=== PATIENT | male | born 1930 | race Caucasian/White ===

== ENCOUNTER 2016-12-16 09:33 | Observation (INO) | payer MEDICARE, OTHER ==
[~2016-12-16] VITALS: Ht 177.8 cm; Wt 102.3 kg
[2016-12-17] MEDS ORDERED: PRILOSEC DPS20 MG PO (12:27)
[2016-12-17] MEDS ORDERED: COUMADIN DPS3 MG PO (12:27)
[2016-12-17] MEDS ORDERED: ZESTRIL DPS2.5 MG PO (12:28)
[2016-12-17] MEDS ORDERED: PROZAC DPS20 MG PO (12:28)
[2016-12-17] MEDS ORDERED: ASPIRIN EC81 MG PO (12:28)
[2016-12-17] MEDS ORDERED: SYNTHROID DPS0.05 MG PO (12:28)
[2016-12-17] MEDS ORDERED: SLO NIACIN DPS500 MG PO (12:28)
[2016-12-17] MEDS ORDERED: CRESTOR10 MG PO (12:28)
[2016-12-17] MEDS ORDERED: MIRAPEX DPS0.25 MG PO (12:29)
[2016-12-17] MEDS ORDERED: XANAX DPS0.25 MG PO (12:29)
[2016-12-17] MEDS ORDERED: CELEBREX200 MG PO (12:29)
[2016-12-17] MEDS ORDERED: AZILECT1 MG PO (12:29)
[2016-12-17] MEDS ORDERED: SINEMET 25/1001 TAB PO (12:29)
--- NOTE | 2016-12-18 13:16 | ER ---
ADMIT: 12/16/2016 RM/LOC: 428 [facility] MR#: [id number] [address] [address] CARDJOANN RAMIREZ [address] [place] [address] Emergency Room Report SEX: M AGE: 86 : 1930 DATE: 12/16/2016 The patient is an 86-year-old male with a past medical history of coronary artery disease, status post 2 stents, DVT, PE, Parkinson disease, who was brought to the ER with chief complaint of mid anterior chest pain which started during the patient was resting. Pain started to gradually increase in severity and became [id number], and was sharp, was not reproducible with palpation and did not increase with deep inspiration. The patient received aspirin in the ambulance. The patient was brought to the ER, vitals are stable, the patient is afebrile and heart rate is normal. EKG did not show any ST or T changes or arrhythmia. Cardiac enzymes are negative. PHYSICAL EXAMINATION: HEAD AND NECK: Noncontributory. CHEST: Bilateral equal breath sounds, normal S1, S2 without any S3 or murmur or S4. ABDOMEN: Soft and nontender without any guarding or rebound. EXTREMITIES: Lower extremities have 2+ pitting edema, with no changes in diameter of the bilateral legs. The patient states after half an hour, by the time he got to the hospital, the pain was as substantially resolved, but still has some intermittent similar pain which starts from the right ear and right side of neck and goes down to the anterior chest. The patient states he is very similar to the pain that he had when he got heart attack and got the stent. Considering the fact that the patient got the first troponin during the first hour of the appearance of the pain and the high-risk history of the patient with multiple comorbidities, Internal Medicine was consulted for possible further followups and possible serial sets of enzymes and EKG per their discretion. Dr. Galeas was also contacted, Cardiology. The patient was advised to get admitted for further followups and treatments for chest pain, rule out acute coronary syndrome. Alton Wilson MD/ cristina JOB #: [id number] CC: Filiberto Galeas MD, Attending Physician Filiberto Galeas MD, Family Physician
--- NOTE | 2016-12-19 11:04 | HP ---
ADMIT: 12/16/2016 RM/LOC: 428 [facility] MR#: [id number] 2620 [facility] [address] [place] [id number] JOANN CARD [address] [place] [address] History and Physical SEX: M AGE: 86 : 1930 DATE OF SERVICE: CHIEF COMPLAINT: Right-sided jaw pain that radiated to his chest that started this morning. Patient states it is very severe pain and it felt very similar to his previous episode in 1998 when he had a heart attack. The patient says the pain started around 8:30. He also had some nausea and feels weak. He also has now started to have a headache and some neck pain, which is not uncommon for him. The pain that he had this morning started at the right jaw and radiated to the chest, felt like it was kind of pulsating there for a while and he states that this is most severe pain he has ever felt, was not sure if he was going to make it this morning. Again similar to when he had symptoms in the past, so he decided to come into the ER. The patient continues to have some pain come and go, but primarily is now just located in his right jaw and headache. So far, workup has been normal. He does have a low hemoglobin 12.6, platelets were normal at 168, white blood cells are normal. PT/INR was 33.4 and 3.10, the patient is on Coumadin. D-dimer was normal at 0.27. Negative for PE also very unlikely due the patient being on Coumadin with the INR 3. BMP was also relatively normal. He had an elevated glucose at 101 and elevated creatinine of 1.5. GFR was low at 42. Cardiac enzymes were negative. CK was 82, MB was 2.4. Troponin less than 0.015. EKG shows sinus rhythm with multiple PVCs, left axis deviation. 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 No acute ST elevations are appreciated. Chest x- ray was normal. PAST MEDICAL HISTORY: Significant for Parkinson disease, multivessel coronary artery disease status post stent, diabetes type 2, hypertension, hyperlipidemia, hypothyroidism, history of DVTs and pulmonary embolisms, history of colon polyps, history of headaches, and a history of nonsustained ventricular tachycardia. ALLERGIES: INCLUDE VALIUM. MEDICATIONS: Include: 1. Coumadin 3.5 mg daily. 2. Omeprazole 20 mg daily. 3. Crestor 10 at night. 4. Lisinopril 2.5 at bedtime. 5. Niacin 500 mg at bedtime. 6. Prozac 20 mg at bedtime. 7. Levothyroxine 50 mcg a day. 8. Baby aspirin daily. 9. Mirapex 0.25 mg 3 times a day. 10.Sinemet 25/100 three times a day. 11.Azilect 1 mg daily. 12.Celebrex 200 mg twice a day. 13.Alprazolam 0.25 mg as needed. PAST SURGICAL HISTORY: He had the stents and CABG. He also has a history of orthopedic surgeries, quadriceps tears as well as the shoulders. ADMIT: 12/16/2016 RM/LOC: 428 [facility] MR#: [id number] [address] [place] [id number] CARDJOANN RAMIREZ [facility] [place] [address] History and Physical SEX: M AGE: 86 : 1930 FAMILY HISTORY: Significant for coronary artery disease, hypertension, arthritis, migraines, and Alzheimer disease. REVIEW OF SYSTEMS: GENERAL: Complains of fatigue and headache. No fever. HEENT: No sore throat. No ear pain. No rhinorrhea. No sinus pain. He does have again a headache and his right jaw pain. HEART: No shortness of breath. No palpitations. He does have positive chest pain and right-sided jaw pain. LUNGS: No shortness of breath. No cough. No wheezing. ABDOMEN: He has had some mild diarrhea recently and does feel nauseated, does not have vomiting. Does not have palpitations. Does not have abdominal pain. EXTREMITIES: No swelling. The patient does have arthritis in multiple joints. NEURO: No seizures. No confusion and no weakness. PHYSICAL EXAMINATION: VITAL SIGNS: Temperature is 97.7, pulse of 69, respiratory rate 20, blood pressure 129/79 with a 99% SpO2 on room air. GENERAL: No acute distress. Alert and oriented x3. Appears in some mild pain but he is able to easily converse with me. HEENT: Normocephalic and atraumatic. Moist mucous membranes. Extraocular muscles are intact. Pupils equal, round, and reactive. No carotid bruits bilaterally. HEART: Regular rate and rhythm. No murmur. LUNGS: Clear to auscultation bilaterally. Normal effort. No wheezing or rhonchi. ABDOMEN: Soft. Positive bowel signs. Mild tenderness in the epigastric region. EXTREMITIES: He does have some trace edema in his feet bilaterally. SKIN: Shows some mild bruising that is consistent and anticoagulant use. NEURO: Cranial nerves II through XII are grossly intact. He has some mild masked facies and he does have a right hand resting tremor consistent with Parkinson disease. ASSESSMENT AND PLAN: This is an 86-year-old male, who presents with chest pain and right jaw pain: 1. Atypical chest pain. 2. History of coronary artery disease. ADMIT: 12/16/2016 RM/LOC: 428 [facility] MR#: [id number] [facility] [address] [address] JOANN CARD [facility] [place] [address] History and Physical SEX: M AGE: 86 : 1930 3. Hypertension. 4. Diabetes. 5. Hypothyroidism. 6. Hyperlipidemia. 7. Parkinson disease. 8. Headaches. Low suspicion for cardiogenic cause of patient's pain, but we will trend EKGs and cardiac enzymes due to the patient's risk factors and history. We will continue the home medications. Cardiology has already been consulted. We will trend the cardiac enzymes every 3 hours for total of 3 times with EKGs. Also we will get a CBC, BMP, and cardiac enzymes again in the morning. This patient was seen and discussed with Dr. Dominik Fernandez. Galina Bennett MD Resident / Dominik Fernandez MD / cristina JOB #: [id number] CC: Filiberto Galeas, Attending Physician Filiberto Galeas, Family Physician
--- NOTE | 2016-12-29 17:24 | CO ---
ADMIT: 12/16/2016 RM/LOC: 428 [facility] MR#: [id number] [address] [address] JOANN CARD [address] [place] [address] Consultation SEX: M AGE: 86 : 1930 DATE OF CONSULTATION: 12/16/2016 ATTENDING PHYSICIAN: Filiberto Galeas CONSULTING PHYSICIAN: John Galeas MD REASON FOR CONSULTATION: Chest pain. HISTORY OF PRESENT ILLNESS: Joann is an 86-year-old, who is well known to me. I see him on a routine basis for coronary artery and peripheral vascular disease. He had a stent to the mid LAD in 1998. He has a left dominant system. We did a heart catheterization in 2010, which showed mild in-stent narrowing but no significant lesions. He has had a proximal to distal popliteal bypass and has a history of DVT/PE, on chronic anticoagulation. More recently, he has been diagnosed with Parkinson's. He has a long history of sinus bradycardia and nonsustained ventricular tachycardia, so he has been off beta-chris. He said he was doing well until this morning. He said he was just up at the table and looking on his cell phone when he turned and he began to have discomfort up in his right neck and then it radiated down his chest into his left chest. He describes as sharp, but cramping sensation. It was rather severe. There were no significant associated symptoms. It persisted, so he came to the emergency room. His cardiac enzymes are negative. He is currently pain free and he is in good humor now. He does not appear acutely ill. His EKG does not show any acute changes. He does have isolated PVCs. ALLERGIES: HE HAS DIOVAN LISTED AN ALLERGY. MEDICATIONS: 1. Coumadin 3 mg one daily. 2. Omeprazole 20 daily. 3. Crestor 10 at bedtime. 4. Lisinopril 2.5 at bedtime. 5. Niacin 500 at bedtime. 6. Prozac 20 at bedtime. 7. Levothyroxine 50 mcg daily. 8. Aspirin 81 daily. 9. Mirapex 0.5 three daily. 10.Sinemet 25/100 three daily. 11.Azilect 1 mg daily. 12.Celebrex 200 daily. 13.Alprazolam 0.25 as needed. ILLNESSES: 1. Hypothyroidism. 2. Coronary artery disease. 3. Peripheral vascular disease. 4. History of bradycardia and nonsustained ventricular tachycardia. ADMIT: 12/16/2016 RM/LOC: 428 [facility] MR#: [id number] [address] [address] JOANN CARD [address] [place] [address] Consultation SEX: M AGE: 86 : 1930 5. Previous DVT/PE, on chronic anticoagulation. 6. Hyperlipidemia. 7. More recently a diagnosis of Parkinson's. PAST SURGICAL HISTORY: 1. Bilateral knee surgery after a traumatic accident. 2. Right hand surgery. 3. Foot surgery. 4. Cholecystectomy. 5. Lower extremity bypass. 6. Left shoulder surgery. SOCIAL HISTORY: He lives at home with his , they have three children. He quit smoking in the . Denies routine alcohol use. No illicit drug use. FAMILY HISTORY: He had five siblings; one brother had a cancer of unknown type, another one had colon cancer, one brother had a stroke. His father apparently had a stroke and coronary disease. His mother of unknown causes. REVIEW OF SYSTEMS: A full 12-point review of systems was reviewed and noncontributory other than that mentioned in the HPI. PHYSICAL EXAMINATION: VITAL SIGNS: Blood pressure is 120/60, his pulse is 66 and regular, respirations 18, he is afebrile. GENERAL: He is alert, oriented. He is in good humor, we are joking at the bedside together. SKIN: [place], warm and dry. EYES: Sclerae clear. No xanthelasmas. ENT: Oral mucosa is pink and moist. I do not appreciate any carotid bruits. No JVD. CHEST: Respirations are even and unlabored. Lungs are clear to auscultation. Mild kyphosis. HEART: Distant. Regularly irregular. Not overly bradycardic. No significant murmurs, rubs, or gallops. ABDOMEN: Soft and nontender. Obese. MUSCULOSKELETAL: Gait is normal. He does have a fine resting tremor of his left arm. EXTREMITIES: There few varicosities and just very mild edema. PSYCHIATRIC: Alert and oriented. Mood and affect are appropriate. LABORATORY AND X-RAY DATA: Sodium 142, potassium 4.2, glucose is 101, creatinine is 1.5, BUN is 24, magnesium is 2.1. His CK is normal. Troponin is normal. INR is 3.1. White count 6.4, hemoglobin 12.6, platelet count 168,000. EKG shows sinus rhythm, left axis deviation and PVCs, no acute ischemic changes noted. IMPRESSION: ADMIT: 12/16/2016 RM/LOC: 428 [facility] MR#: [id number] [address] [place] [id number] JOANN CARD [facility] [place] [address] Consultation SEX: M AGE: 86 : 1930 1. Atypical chest pain. 2. Known coronary artery disease with a previous stent to his LAD. 3. History of nonsustained ventricular tachycardia. 4. Sinus bradycardia. 5. Parkinson's. 6. History of deep vein thrombosis/pulmonary embolism, on chronic anticoagulation. RECOMMENDATION: My suspicion for an acute coronary syndrome is low. He has had several episodes of this chest pain and most recently in 2010, at which time, we did a stress test which led to a heart catheterization showing stable coronary disease. Unless there is significant change in his symptoms or his enzymes or EKG, I am not even sure we should repeat his stress test but I will ultimately decide based on his clinical course. We will continue ruling him out overnight and monitoring his symptoms closely. John Galeas MD/ cristina JOB #: [id number] CC: Filiberto Galeas, Attending Physician Filiberto Galeas, Family Physician
== END 2016-12-17 11:13 | disposition home or self-care (01) ==
LOC: ER 09:33 → 4PCU 13:00
PROVIDERS: ADMIT Family Medicine
DX: R07.89 Other chest pain (principal); I25.10 Atherosclerotic heart disease of native coronary artery without angina pectoris; E11.9 Type 2 diabetes mellitus without complications; I10 Essential (primary) hypertension; E78.5 Hyperlipidemia, unspecified; E03.9 Hypothyroidism, unspecified; G20 Parkinson's disease; R00.1 Bradycardia, unspecified; Z86.718 Personal history of other venous thrombosis and embolism; Z86.711 Personal history of pulmonary embolism; Z88.8 Allergy status to other drugs, medicaments and biological substances; Z79.01 Long term (current) use of anticoagulants; Z79.899 Other long term (current) drug therapy; Z95.5 Presence of coronary angioplasty implant and graft; Z87.891 Personal history of nicotine dependence; Z90.49 Acquired absence of other specified parts of digestive tract; Z98.890 Other specified postprocedural states

== ENCOUNTER 2016-12-25 23:32 | Emergency (ER) | payer MEDICARE, OTHER ==
[~2016-12-25 23:32] MED LIST: ASPIRIN EC81 MG PO; AZILECT1 MG PO; CELEBREX200 MG PO; COUMADIN DPS3 MG PO; CRESTOR10 MG PO; MIRAPEX DPS0.25 MG PO; PRILOSEC DPS20 MG PO; PROZAC DPS20 MG PO; SINEMET 25/1001 TAB PO; SLO NIACIN DPS500 MG PO; SYNTHROID DPS0.05 MG PO; XANAX DPS0.25 MG PO; ZESTRIL DPS2.5 MG PO
--- NOTE | 2016-12-26 06:13 | ER ---
ADMIT: 12/25/2016 RM/LOC: ER [facility] MR#: [id number] [address] [address] CARDJOANN RAMIREZ [address] [place] [address] Emergency Room Report SEX: M AGE: 86 : 1930 DATE: 12/25/2016 HISTORY OF PRESENT ILLNESS: The patient is an 86-year-old male with a past medical history of coronary artery disease, stent, hypothyroidism, DVT PE and IVC filter placement, who came to the ER with chief complaint of feeling more congested, cough with sputum, mildly shortness of breath. The patient states he has very transient few seconds of chest pain which was resolved and also at that time radiated to the right neck and it was not related to activity. At the moment, the patient has no chest pain. The patient also has a headache on the right side which is moderate in severity and similar to previous headaches. The patient denies any neck pain or neck stiffness. Also has no photophobia. PHYSICAL EXAMINATION: GENERAL: The patient was stable, in no obvious distress, answering with full sentences, alert and oriented to person, place, and time. HEAD AND NECK: Positive for oropharyngeal erythema without exudate. Trachea was midline. LUNGS: I did not hear any crackles or wheezing but the patient has shallow breathing bilaterally. HEART: Normal S1, S2. ABDOMEN: Soft. The rest of the physical exam is noncontributory. LABORATORY AND X-RAY DATA: EKG showed normal sinus rhythm with a rate of 70. Chest x-ray with questionable right lung infiltration. ESR was also 20, ruling out temporal arteritis. Cardiac enzymes were negative. The rest of the lab works were also noncontributory. DISPOSITION: The patient was stable, in no distress. The patient was discharged to home with treatment for community-acquired pneumonia for 5 days. The patient is going to be followed up by the primary care doctor as needed. Atlon Wilson MD/ cristina JOB #: [id number] CC: Alton Wilson MD, Attending Physician
== END 2016-12-26 01:50 | disposition home or self-care (01) ==
LOC: ER 23:32
DX: J18.9 Pneumonia, unspecified organism (principal); Z86.718 Personal history of other venous thrombosis and embolism; Z79.01 Long term (current) use of anticoagulants; Z88.8 Allergy status to other drugs, medicaments and biological substances

== ENCOUNTER 2017-02-13 00:45 | Emergency (ER) | payer MEDICARE, OTHER ==
--- NOTE | 2017-02-13 06:47 | ER ---
ADMIT: 02/13/2017 RM/LOC: ER [facility] MR#: [id number] 2620 [facility] [address] [place], [place] [address] JOANN CARD [address] [place] [address] Emergency Room Report SEX: M AGE: 86 : 1930 DATE: 02/13/2017 The patient is an 86-year-old male with Parkinson's; coronary artery disease; chronic thromboembolism, anticoagulated, states he is having difficulty swallowing, has had extensive cardiac evaluation recently. Exam remarkable for nontoxic, anxious male, able to tolerate oral challenge well followed then with GI cocktail, Protonix, Zofran with further improvement. CTA chest, negative for PE. EKG showed sinus rhythm with PVCs, unchanged from previous. Hemoglobin 12.6, lactic 1.1, CRP 0.29, creatinine 1.4, INR 2.04, troponin 0.016, BNP 980. Urinalysis negative and chest x-ray unremarkable. Recommend taking Parkinson's medicines 1 hour prior to eating, have maximal benefit for swallowing. Use Xanax as needed sublingually for anxiety. Follow up with Dr. Galeas for further imaging if swallowing difficulties continue. Efrain Jordan MD/ marthal JOB #: [id number] CC: Efrain Jordan MD, Attending Physician Filiberto Galeas MD, Family Physician Filiberto Galeas MD
== END 2017-02-13 03:15 | disposition home or self-care (01) ==
LOC: ER 00:45
DX: K44.9 Diaphragmatic hernia without obstruction or gangrene (principal); G20 Parkinson's disease; F41.9 Anxiety disorder, unspecified; I25.10 Atherosclerotic heart disease of native coronary artery without angina pectoris; I10 Essential (primary) hypertension; E78.5 Hyperlipidemia, unspecified; Z86.718 Personal history of other venous thrombosis and embolism; Z95.1 Presence of aortocoronary bypass graft; Z90.49 Acquired absence of other specified parts of digestive tract; Z88.8 Allergy status to other drugs, medicaments and biological substances; Z87.891 Personal history of nicotine dependence